=== PATIENT | female | born 1945 | race Caucasian/White ===

== ENCOUNTER 2025-05-24 16:46 | Emergency (ER) | payer MEDICARE ==
[~2025-05-24] VITALS: Ht 157.5 cm; Wt 68.0 kg
[2025-05-24 16:56] VITALS: O2SAT 99
[2025-05-24] MEDS: OXYMETAZOLINE HCL NASAL SPRAY 15ML BOTHNSTRLS STA (17:34)
[2025-05-24 18:25] VITALS: BP 166/72; PULSE 74; RESP 13; TEMP 36.5; O2SAT 99
== END 2025-05-24 18:26 | disposition home or self-care (01) ==
LOC: ER 16:46
DX: R04.0 Epistaxis (principal); I10 Essential (primary) hypertension
CPT/HCPCS: 99283